=== PATIENT | female | born 1950 | race Two or more races ===

== ENCOUNTER → 2017-08-02 | Day surgery (SDC) | payer OTHER ==
[~2017-08-02] MED LIST: AMLODIPINE BESYL5 MG PO; DIOVAN320 MG PO; IMODIUM A-D2 MG PO; INTESTINEX1 CA1 PO; PERCOCET 5-3251 EACH PO; PERCOCET 5/3251 TAB PO; PRILOSEC20 MG PO; SYNTHROID50 MCG PO
== END | disposition home or self-care (01) ==
LOC: ADM 07-25 09:00 → CIR.AMB 06:03
DX: C19 Malignant neoplasm of rectosigmoid junction (principal)

== ENCOUNTER → 2018-06-23 | Day surgery (SDC) | payer OTHER | END | disposition home or self-care (01) | LOC: ADM 06-19 12:45 → AMB-ENDOS 05:52 → CIR.AMB 12:45 | DX: C19 Malignant neoplasm of rectosigmoid junction (principal) ==

== ENCOUNTER 2019-09-14 11:27 | Emergency (ER) | payer OTHER ==
[~2019-09-14] VITALS: Ht 157.5 cm; Wt 77.1 kg
[2019-09-14] MEDS ORDERED: COZAAR25 MG PO (11:50)
[2019-09-14] MEDS ORDERED: INTESTINEX680 M1 PO (16:31)
[2019-09-14] MEDS ORDERED: PEPCID AC20 MG PO (16:31)
== END 2019-09-14 17:19 | disposition home or self-care (01) ==
LOC: ER 11:27
DX: K29.60 Other gastritis without bleeding (principal); R10.13 Epigastric pain; Z03.818 Encounter for observation for suspected exposure to other biological agents ruled out

== ENCOUNTER 2020-05-02 06:21 | Day surgery (SDC) | payer OTHER ==
[~2020-05-02 06:21] MED LIST changes: +COZAAR25 MG PO; +INTESTINEX680 M1 PO; +PEPCID AC20 MG PO
== END 2020-05-02 10:20 | disposition home or self-care (01) ==
LOC: AMB-ENDOS 06:21
PROVIDERS: ATTEND Surgery
DX: K62.89 Other specified diseases of anus and rectum (principal); K64.8 Other hemorrhoids; Z20.822 Contact with and (suspected) exposure to COVID-19